=== PATIENT | male | born 1970 | race Caucasian/White ===

== ENCOUNTER 2018-02-19 10:30 | Emergency (ER) | payer OTHER ==
[~2018-02-19] VITALS: Ht 172.7 cm; Wt 116.1 kg
--- NOTE | 2018-02-19 10:44 | PHYS DOC ---
Past History Past Medical History: Anxiety, Depression, Diabetes, High Cholesterol, Other Additional Past Medical Histor: PTSD Smoking: Non-smoker Alcohol Use: None Drug Use: None Adult General Chief Complaint Chief Complaint: CHEST PAIN HPI HPI Patient is a 47 year old male who brought in by EMS because of chest pain. Patient complaining of intermittent episodes of substernal sharp and pressure pain since last night that last about couple minutes and associated with episodes of shortness of breath with radiation to left shoulder. Patient state he has more constant pain since this morning and complaining of palpitation and dizziness and left hand numbness. Patient rated his pain 8/10. EMS gave him 324 mg aspirin without change of pain. Patient states she had the same pain about 18 months ago and had extensive negative neurological and cardiac evaluation. Patient has history of dyslipidemia and diabetes mellitus and pleasant smoking, and coronary artery disease. Patient has positive family history of coronary artery disease. [facility] and [facility] but ambulance was diverted by [place]. Review of Systems Review of Systems Constitutional: Denies fever or chills [] Eyes: Denies change in visual acuity, redness, or eye pain [] HENT: Denies nasal congestion or sore throat [] Respiratory: Denies cough, reports shortness of breath [] Cardiovascular: No additional information not addressed in HPI [] GI: Denies abdominal pain, nausea, vomiting, bloody stools or diarrhea [] : Denies dysuria or hematuria [] Musculoskeletal: Denies back pain or joint pain [] Integument: Denies rash or skin lesions [] Neurologic: Denies headache, focal weakness or sensory changes [] Endocrine: Denies polyuria or polydipsia [] All other systems were reviewed and found to be within normal limits, except as documented in this note. Physical Exam Physical Exam Constitutional: Well developed, well nourished, mild distress, non-toxic appearance, obese. [] HENT: Normocephalic, atraumatic, oropharynx moist, no oral exudates, nose normal. [] Eyes: PERRLA, EOMI, conjunctiva normal, no discharge. [] Neck: Normal range of motion, no tenderness, supple, no stridor. [] Cardiovascular:Heart rate regular rhythm, no murmur [] Lungs & Thorax: Bilateral breath sounds clear to auscultation [] Abdomen: Bowel sounds normal, soft, no tenderness, no masses, no pulsatile masses. [] Skin: Warm, dry, no erythema, no rash. [] Back: No tenderness, no CVA tenderness. [] Extremities: No tenderness, no cyanosis, no clubbing, ROM intact, no edema. [] Neurologic: Alert and oriented X 3, normal motor function, normal sensory function, no focal deficits noted. [] Psychologic: Affect normal, judgement normal, mood normal. [] EKG EKG EKG interpreted by me. EKG at 1035 showed normal sinus rhythm at rate of 99, left begum axis, Q wave in anterior leads, poor R-wave progress in anterior leads , no acute ST-T wave abnormalities. Radiology/Procedures Radiology/Procedures [address] [address] IMAGING REPORT Signed PATIENT: DINA PALENCIA ACCOUNT: [id number] : 1970 LOCATION: ER AGE: 47 SEX: M EXAM STATUS: PRE ER ORD. PHYSICIAN: TORO HELLER MD REASON: chest pain PROCEDURE: PORTABLE CHEST 1V EXAM: CHEST 1 VIEW History: Chest pain COMPARISON: None available. TECHNIQUE: Single portable radiograph of the chest FINDINGS: The cardiac silhouette is unremarkable. The lungs are clear bilaterally. The costophrenic sulci are clear and well demarcated. IMPRESSION: No radiographic evidence of an acute cardiopulmonary process. Electronically signed by: Diego Díaz MD (02/19/2018 10:54 AM) [place] [id number] DICTATED AND SIGNED BY: DIEGO DÍAZ MD DATE: 02/19/18 1054 CC: TORO HELLER MD; CARTER TORIBIO MD [address] [address] IMAGING REPORT Signed PATIENT: DINA PALENCIA ACCOUNT: [id number] : 1970 LOCATION: ER AGE: 47 SEX: M EXAM STATUS: REG ER ORD. PHYSICIAN: TORO HELLER MD REASON: substernal and epigastric pain PROCEDURE: ABDOMEN LTD Examination: Ultrasound abdomen limited HISTORY: History of epigastric pain COMPARISON: None available FINDINGS: There is increased echogenicity noted throughout the liver likely hepatic steatosis. The pancreas is not well-visualized due to bowel gas. No evidence of gallstones. Right lobe of the liver measures 17.7 cm. The right kidney measures 12.3 cm in length. Common bile duct measures 2.6 mm in diameter. IMPRESSION: 1. Hepatic steatosis. 2. No evidence of gallstones. Electronically signed by: Diego Díaz MD (02/19/2018 11:58 AM) [place] [id number] DICTATED AND SIGNED BY: DIEGO DÍAZ MD DATE: 02/19/18 2851 CC: TORO HELLER MD; CARTER TORIBIO MD ~ Course & Med Decision Making Course & Med Decision Making Pertinent Labs and Imaging studies reviewed. (See chart for details) Evaluation of patient in ER showed 47-year-old male patient with several cardiac risk factor brought in by EMS because of episodes of chest pain since last night. EKG showed poor R-wave progress in anterior leads. Labs was unremarkable except for mild elevation of liver function tests. Gallbladder ultrasound was unremarkable. Because of cardiac his rectal area for patient admission but he refused because of financial concern and states [facility] does not pay for his admission to this hospital and doesn't want to go to [facility] in [place]. [facility] was contacted and was not able to accept the patient. Patient wanted to leave AMA. Patient started to follow-up with his primary care physician and return to ER anytime if not getting better. Dragon Disclaimer Dragon Disclaimer This electronic medical record was generated, in whole or in part, using a voice recognition dictation system. Departure Departure: Impression: Primary Impression: Acute chest pain Additional Impression: Elevated liver function tests Disposition: 07 AGAINST MEDICAL ADVICE (at 12:30 today) Condition: IMPROVED Referrals: CARTER TORIBIO MD (PCP) Patient Instructions: Chest Pain (Nonspecific) Additional Instructions: eleonora care physician in 1-2 days Return to ER if not getting better Problem Qualifiers TORO HELLER MD Feb 19, 2018 10:44
[2018-02-19] MEDS ORDERED: NITROGLYCERIN SUBLINGUAL 0.4 MG BOTTLE OF 25. SL PRN (10:45)
[2018-02-19 10:57] LABS: BASO # 0.1 x10^3/uL (0.0-0.2); BASO % 1 % (0-3); EOS # 0.2 x10^3/uL (0.0-0.7); EOS % 2 % (0-3); HEMATOCRIT 53.1 % (39.0-53.0); HEMOGLOBIN 18.4 g/dL (13.0-17.5); LYMPH # 3.3 x10^3/uL (1.0-4.8); LYMPH % 30 % (24-48); MEAN CORPUSCULAR HEMOGLOBIN 32 pg (25-35); MEAN CORPUSCULAR HGB CONC 35 g/dL (31-37); MEAN CORPUSCULAR VOLUME 91 fL (79-100); MONO # 0.6 x10^3/uL (0.0-1.1); MONO % 6 % (0-9); NEUT # 6.6 x10^3uL (1.8-7.7); NEUT % 61 % (31-73); PLATELET COUNT 210 x10^3/uL (140-400); RED BLOOD COUNT 5.85 x10^6/uL (4.30-5.70); RED CELL DISTRIBUTION WIDTH 13.8 % (11.5-14.5); WHITE BLOOD COUNT 10.8 x10^3/uL (4.0-11.0)
--- NOTE | 2018-02-19 10:57 | RAD ---
EXAM: CHEST 1 VIEW History: Chest pain COMPARISON: None available. TECHNIQUE: Single portable radiograph of the chest FINDINGS: The cardiac silhouette is unremarkable. The lungs are clear bilaterally. The costophrenic sulci are clear and well demarcated. IMPRESSION: No radiographic evidence of an acute cardiopulmonary process. Electronically signed by: Diego Díaz MD (02/19/2018 10:54 AM) [place] [id number]
[2018-02-19 11:18] LABS: ALBUMIN 4.2 g/dL (3.4-5.0); ALBUMIN/GLOBULIN RATIO 1.1 (1.0-1.7); CALCIUM 9.2 mg/dL (8.5-10.1); CREATININE 0.9 mg/dL (0.7-1.3); GFR 91.3; MAGNESIUM 2.1 mg/dL (1.8-2.4); POTASSIUM 3.8 mmol/L (3.5-5.1); TOTAL BILIRUBIN 0.8 mg/dL (0.2-1.0)
--- NOTE | 2018-02-19 11:48 | NUR ---
[facility] THE PATIENT THEY DIVERT[facility]. THEY SAID THEY WERE AT CAPACITY. I CALLED THE [facility] AND THEY SAID THEY COULD NOT ADMIT THE PATIENT DUE TO NO CARDIOLOGY SERVICES. THEY SAID IT WOULD BE DOCUMENTED, SO PATIENT WOULD NOT BE BILLED.
[2018-02-19 12:00] VITALS: BP 147/81
--- NOTE | 2018-02-19 12:01 | RAD ---
Examination: Ultrasound abdomen limited HISTORY: History of epigastric pain COMPARISON: None available FINDINGS: There is increased echogenicity noted throughout the liver likely hepatic steatosis. The pancreas is not well-visualized due to bowel gas. No evidence of gallstones. Right lobe of the liver measures 17.7 cm. The right kidney measures 12.3 cm in length. Common bile duct measures 2.6 mm in diameter. IMPRESSION: 1. Hepatic steatosis. 2. No evidence of gallstones. Electronically signed by: Diego Díaz MD (02/19/2018 11:58 AM) [place] [id number]
--- NOTE | 2018-02-19 12:35 | EKG ---
[address] [address] Test Date: 2018-02-19 Test Time: 10:35:34 Pat Name: DINA PALENCIA Department: Room: Gender: M Budget Consultant: : 1970 Requested By: TORO HELLER Order Number: [id number] Reading MD: Ananda Ramirez MD Measurements Intervals [place] Rate: 99 P: 23 [place]: 162 QRS: -12 QRSD: 94 T: 10 QT: 330 QTc: 423 Interpretive Statements SINUS RHYTHM LEFTWARD AXIS Electronically Signed On 02-22-2018 11:16:41 [employer]ED [employer] OPERATOR by Ananda Ramirez MD
[2018-02-19 12:44] LABS: BARBITURATES NEG (NEG); BENZODIAZEPINES NEG (NEG); CANNABINOIDS NEG (NEG); COCAINE NEG (NEG); METHADONE NEG (NEG); OPIATES POS (NEG); PHENCYCLIDINE NEG (NEG)
[2018-02-19 12:45] LABS: AMPHETAMINE/METHAMPHETAMINE NEG (NEG)
== END 2018-02-19 12:30 | disposition left against medical advice (07) ==
LOC: ER 10:30
DX: R07.2 Precordial pain (principal); R79.89 Other specified abnormal findings of blood chemistry; R42 Dizziness and giddiness; F41.9 Anxiety disorder, unspecified; F32.9 Major depressive disorder, single episode, unspecified; E11.9 Type 2 diabetes mellitus without complications; E78.00 Pure hypercholesterolemia, unspecified; F43.10 Post-traumatic stress disorder, unspecified; K76.0 Fatty (change of) liver, not elsewhere classified
CPT/HCPCS: 36415; 71045; 76705; 80053; 80307; 82550; 83690; 83735; 83880; 84484; 85025; 85379; 85610; 93005; 99285-25